=== PATIENT | female | born 1980 | race Caucasian/White ===

== ENCOUNTER 2021-09-06 21:44 | Emergency (ER) | payer OTHER ==
[~2021-09-06 21:44] MED LIST: ZOFRAN4 MG PO
[2021-09-07] MEDS ORDERED: NAPROXEN500 MG PO (01:21)
== END 2021-09-07 01:46 | disposition home or self-care (01) ==
LOC: FER 21:44
DX: S61.032A Puncture wound without foreign body of left thumb without damage to nail, initial encounter (principal); F17.210 Nicotine dependence, cigarettes, uncomplicated; Z23 Encounter for immunization; W45.8XXA Other foreign body or object entering through skin, initial encounter; Y92.009 Unspecified place in unspecified non-institutional (private) residence as the place of occurrence of the external cause
CPT/HCPCS: 73130; 90471; 90715